=== PATIENT | female | born 1925 | race Asian ===

== ENCOUNTER 2016-09-13 16:05 | Inpatient (IN) | payer MEDICARE ==
[~2016-09-13] VITALS: Ht 152.4 cm; Wt 54.4 kg
[~2016-09-13 16:05] MED LIST: ASPI-1035 PO; FISH1CAP2 PO; LOSA1TAB34 PO; MULT-54 PO; SIMV40TA5 PO
[2016-09-13] MEDS ORDERED: IPRATROPIUM BROMIDE (0.02%) 0.5MG/2.5ML NEB HHN STA (19:38)
[2016-09-13] MEDS ORDERED: METHYLPREDNISOLONE SOD SUCC 125 MG/2 ML VIAL IV STA (19:38)
[2016-09-13] MEDS ORDERED: ALBUTEROL (0.083%) 2.5MG/3ML NEB HHN STA (19:38)
[2016-09-13] MEDS ORDERED: MAGNESIUM 2 G PREMIX 50 ML IV ONE (19:45)
[2016-09-13] MEDS ORDERED: LEVOFLOXACIN 500MG PREMIX 100 ML IV ONE (19:45)
[2016-09-13 20:08] LABS: MEAN CORPUSCULAR HEMOGLOBIN 38.1 pg (28.0-32.0); MEAN CORPUSCULAR VOLUME 111.7 fL (81.0-99.0); MEAN PLATELET VOLUME 8.1 fl (7.4-10.4); PLATELET 53 x1000/uL (130-400); RED BLOOD CELL COUNT 1.78 mill/uL (4.2-5.4); RED CELL DISTRIBUTION WIDTH 22.1 % (11.6-14.6)
[2016-09-13 20:11] LABS: HEMATOCRIT. 19.9 % (36.0-48.0); HEMOGLOBIN. 6.8 g/dL (12.0-16.0)
[2016-09-13 20:13] LABS: PROTHROMBIN TIME 10.7 sec
[2016-09-13 20:16] LABS: CARBON DIOXIDE 25 mEq/L (21-32); CHLORIDE 104 mEq/L (98-107)
[2016-09-13 20:21] LABS: CREATINE KINASE 102 IU/L (26-192); CREATINE KINASE MB FRACTION < 0.5 ng/mL (0.5-3.6); TOTAL IRON BINDING CAPACITY 216 ug/dL (250-450); TROPONIN I < 0.02 ng/mL (0.00-0.04)
[2016-09-13] MEDS ORDERED: ALBUTEROL (0.5%) 2.5MG/0.5ML NEB HHN ONE (20:25)
[2016-09-13] MEDS ORDERED: IPRATROPIUM/ALBUTEROL 0.5-3(2.5)MG/3ML NEB ONE (20:25)
[2016-09-13 20:34] LABS: ATYPICAL LYMPHOCYTES 2
[2016-09-13 20:35] LABS: PLATELET ESTIMATE DECREASED
[2016-09-13] MEDS ORDERED: FUROSEMIDE 20MG/2ML VIAL IVP ONE (21:00)
[2016-09-13] MEDS ORDERED: NITROGLYCERIN 0.4MG TABLET SL SL PRN (22:45)
[2016-09-13] MEDS ORDERED: NA PHOS,M-B/NA PHOS,DI-BA ENEMA 118ML PR PRN (22:45)
[2016-09-13] MEDS ORDERED: MAGNESIUM/ALUMINUM HYDROXIDE/SIMETHICONE 30ML UDC PO PRN (22:45)
[2016-09-13] MEDS ORDERED: DOCUSATE SODIUM 100MG CAPSULE PO PRN (22:45)
[2016-09-13] MEDS ORDERED: GUAIFENESIN 200MG/10ML SUGAR FREE UDC PO PRN (22:45)
[2016-09-13] MEDS ORDERED: MORPHINE SULFATE 2 MG/ML CPJ (NOT FOR IM USE) IV PRN (22:45)
[2016-09-13] MEDS ORDERED: ENOXAPARIN 40MG/0.4ML SYR SUBCUT SCH (22:45)
[2016-09-13] MEDS ORDERED: ACETAMINOPHEN 325MG TABLET PO PRN (22:45)
[2016-09-13] MEDS ORDERED: IPRATROPIUM/ALBUTEROL 0.5-3(2.5)MG/3ML NEB INH PRN (22:45)
[2016-09-13] MEDS ORDERED: ONDANSETRON HCL 4MG/2ML VIAL IV PRN (22:45)
[2016-09-13] MEDS ORDERED: CLONIDINE 0.1MG TABLET PO PRN (22:45)
[2016-09-13] MEDS ORDERED: TRAMADOL 50MG TABLET PO PRN (22:45)
[2016-09-13] MEDS ORDERED: DIPHENHYDRAMINE 50MG/ML VIAL IV PRN (22:45)
[2016-09-13] MEDS ORDERED: ACETAMINOPHEN 325MG TABLET PO ONE (23:30)
[2016-09-14] VITALS (10 sets, daily range): BP systolic 92–128; BP diastolic 49–81
[2016-09-14] MEDS: GUAIFENESIN/DM 600MG/30MG ER TAB 12HR PO SCH ×3 (01:01→21:16)
[2016-09-14] MEDS ORDERED: BREO-ELLIPTA INH (02:12)
[2016-09-14 07:56] LABS: CREATINE KINASE MB FRACTION < 0.5 ng/mL (0.5-3.6); TROPONIN I < 0.02 ng/mL (0.00-0.04)
[2016-09-14 07:57] LABS: CREATINE KINASE 95 IU/L (26-192)
[2016-09-14 08:30] LABS: HEMATOCRIT. 22.4 % (36.0-48.0); HEMOGLOBIN. 7.5 g/dL (12.0-16.0); MEAN CORPUSCULAR HEMOGLOBIN 35.5 pg (28.0-32.0); MEAN CORPUSCULAR VOLUME 106.9 fL (81.0-99.0); RED CELL DISTRIBUTION WIDTH 24.1 % (11.6-14.6)
[2016-09-14] MEDS ORDERED: LEVOFLOXACIN 750MG PREMIX 150 ML IV SCH ×2 (09:00→11:00)
[2016-09-14] MEDS: METOPROLOL TARTRATE 25MG TABLET PO SCH ×2 (09:00→21:00)
[2016-09-14 09:03] LABS: PLATELET 47 x1000/uL (130-400)
[2016-09-14] MEDS: ZINC SULFATE 220 MG ( 50 ) CAPSULE PO SCH (09:50)
[2016-09-14] MEDS: PANTOPRAZOLE SODIUM 40 MG/VIAL IV SCH (09:55)
[2016-09-14 10:50] LABS: PLATELET ESTIMATE MARKEDLY DECREASED
[2016-09-14 18:00] LABS: HEMATOCRIT 25.6 % (36.0-48.0); HEMOGLOBIN 8.7 g/dL (12.0-16.0); MEAN CORPUSCULAR HEMOGLOBIN 33.6 pg (28.0-32.0); MEAN CORPUSCULAR VOLUME 99.4 fL (81.0-99.0); RED BLOOD CELL COUNT 2.58 mill/uL (4.2-5.4); RED CELL DISTRIBUTION WIDTH 25.8 % (11.6-14.6)
[2016-09-14 18:12] LABS: PLATELET 45 x1000/uL (130-400)
[2016-09-14 18:21] LABS: CREATINE KINASE 149 IU/L (26-192); CREATINE KINASE MB FRACTION 1.8 ng/mL (0.5-3.6); TROPONIN I < 0.02 ng/mL (0.00-0.04)
[2016-09-14] MEDS ORDERED: GUAIFENESIN 600MG ER TABLET PO SCH (21:00)
[2016-09-14] MEDS: PIPERACILLIN/TAZ 3.375G PREMIX 50 ML IV SCH (23:05)
[2016-09-15] VITALS: BP 99/60
[2016-09-15] MEDS: IPRATROPIUM/ALBUTEROL 0.5-3(2.5)MG/3ML NEB HHN SCH ×5 (02:29→20:24)
[2016-09-15 04:00] VITALS: BP 92/56
[2016-09-15] MEDS: PIPERACILLIN/TAZ 3.375G PREMIX 50 ML IV SCH ×3 (06:18→22:27)
[2016-09-15 06:59] LABS: HEMATOCRIT. 25.3 % (36.0-48.0); HEMOGLOBIN. 8.5 g/dL (12.0-16.0); MEAN CORPUSCULAR HEMOGLOBIN 33.8 pg (28.0-32.0); MEAN CORPUSCULAR VOLUME 100.7 fL (81.0-99.0); MEAN PLATELET VOLUME 8.8 fl (7.4-10.4); RED BLOOD CELL COUNT 2.51 mill/uL (4.2-5.4); RED CELL DISTRIBUTION WIDTH 26.3 % (11.6-14.6)
[2016-09-15 08:00] VITALS: BP 97/50
[2016-09-15] MEDS: PANTOPRAZOLE SODIUM 40 MG/VIAL IV SCH (08:41)
[2016-09-15] MEDS: ZINC SULFATE 220 MG ( 50 ) CAPSULE PO SCH (08:41)
[2016-09-15] MEDS: GUAIFENESIN 600MG ER TABLET PO SCH ×2 (08:41→20:34)
[2016-09-15] MEDS: METOPROLOL TARTRATE 25MG TABLET PO SCH (08:42)
[2016-09-15 10:20] LABS: PLATELET ESTIMATE MARKEDLY DECREASED
[2016-09-15 10:21] LABS: PLATELET 42 x1000/uL (130-400)
[2016-09-15 12:00] VITALS: BP 96/47
[2016-09-15 16:00] VITALS: BP 92/48
[2016-09-15 20:00] VITALS: BP 102/62
[2016-09-15] MEDS: ZOLPIDEM TARTRATE 5MG TABLET PO PRN (22:27)
[2016-09-16] VITALS (10 sets, daily range): BP systolic 95–126; BP diastolic 55–77
[2016-09-16] MEDS: IPRATROPIUM/ALBUTEROL 0.5-3(2.5)MG/3ML NEB HHN SCH ×3 (02:33→21:51)
[2016-09-16 06:15] LABS: HEMATOCRIT. 24.4 % (36.0-48.0); HEMOGLOBIN. 8.3 g/dL (12.0-16.0); MEAN CORPUSCULAR HEMOGLOBIN 34.6 pg (28.0-32.0); MEAN CORPUSCULAR VOLUME 102.1 fL (81.0-99.0); RED BLOOD CELL COUNT 2.39 mill/uL (4.2-5.4); RED CELL DISTRIBUTION WIDTH 26.1 % (11.6-14.6)
[2016-09-16 06:26] LABS: PLATELET 38 x1000/uL (130-400)
[2016-09-16] MEDS: PIPERACILLIN/TAZ 3.375G PREMIX 50 ML IV SCH (07:21)
[2016-09-16] MEDS: PANTOPRAZOLE SODIUM 40 MG/VIAL IV SCH (09:01)
[2016-09-16] MEDS: ZINC SULFATE 220 MG ( 50 ) CAPSULE PO SCH (09:01)
[2016-09-16] MEDS: GUAIFENESIN 600MG ER TABLET PO SCH ×2 (09:01→20:57)
[2016-09-16 10:03] LABS: BG BASE EXCESS -2.6 mmol/L (-2.0-2.0); BG CARBOXYHEMOGLOBIN 0.3 % (0.5-1.5); BG DEOXYHEMOGLOBIN 7.8 % (0.0-5.0); BG FRACTION INSPIRED OXYGEN 21; BG HCO3 ACT 21.1 mmol/L (22.0-26.0); BG METHEMOGLOBIN 0.3 % (0.0-1.5); BG OXYGEN SATURATION 92.2 % (92.0-98.5); BG OXYHEMOGLOBIN 91.6 % (94.0-97.0); BG PCO2 32.4 mmHg (35.0-45.0); BG PH 7.431 (7.350-7.450); BG PO2 64.2 mmHg (75.0-100.0); BG SAMPLE SITE LEFT BRACHIAL; BG VENT MODE ROOM AIR
[2016-09-16] MEDS ORDERED: LEVOFLOXACIN 500MG TABLET PO SCH (11:00)
[2016-09-16 11:34] LABS: PLATELET ESTIMATE MARKEDLY DECREASED
[2016-09-16] MEDS: LEVOFLOXACIN 250MG TABLET PO SCH (12:09)
[2016-09-16] MEDS: ZOLPIDEM TARTRATE 5MG TABLET PO PRN (22:20)
[2016-09-17] VITALS: BP 94/50
[2016-09-17] MEDS: IPRATROPIUM/ALBUTEROL 0.5-3(2.5)MG/3ML NEB HHN SCH ×3 (01:55→12:06)
[2016-09-17 04:00] VITALS: BP 101/58
[2016-09-17 05:31] LABS: HEMATOCRIT. 27.2 % (36.0-48.0); HEMOGLOBIN. 9.2 g/dL (12.0-16.0); MEAN CORPUSCULAR HEMOGLOBIN 33.7 pg (28.0-32.0); MEAN CORPUSCULAR VOLUME 99.7 fL (81.0-99.0); RED BLOOD CELL COUNT 2.72 mill/uL (4.2-5.4); RED CELL DISTRIBUTION WIDTH 24.2 % (11.6-14.6)
[2016-09-17 06:24] LABS: CARBON DIOXIDE 24 mEq/L (21-32); CHLORIDE 112 mEq/L (98-107)
[2016-09-17 08:00] VITALS: BP 135/81
[2016-09-17 08:07] LABS: PLATELET 35 x1000/uL (130-400); PLATELET ESTIMATE MARKEDLY DECREASED
[2016-09-17] MEDS: LEVOFLOXACIN 250MG TABLET PO SCH (09:32)
[2016-09-17] MEDS: GUAIFENESIN 600MG ER TABLET PO SCH (09:32)
[2016-09-17] MEDS: ZINC SULFATE 220 MG ( 50 ) CAPSULE PO SCH (09:32)
[2016-09-17] MEDS: PANTOPRAZOLE SODIUM 40 MG/VIAL IV SCH (09:33)
[2016-09-17 12:00] VITALS: BP 120/63
== END 2016-09-17 14:40 | disposition home or self-care (01) | DRG 190 ==
LOC: ER 09-14 00:41 → 6WST 09-14 00:42
PROVIDERS: ADMIT Internal Medicine; ATTEND Internal Medicine
PROC: 30233N1 Transfusion of Nonautologous Red Blood Cells into Peripheral Vein, Percutaneous Approach (ICD-10-PCS; principal; 2016-09-13)
DX: J44.0 Chronic obstructive pulmonary disease with (acute) lower respiratory infection (principal); J18.9 Pneumonia, unspecified organism; C91.10 Chronic lymphocytic leukemia of B-cell type not having achieved remission; E44.1 Mild protein-calorie malnutrition; C85.90 Non-Hodgkin lymphoma, unspecified, unspecified site; J44.1 Chronic obstructive pulmonary disease with (acute) exacerbation; D69.59 Other secondary thrombocytopenia; I25.10 Atherosclerotic heart disease of native coronary artery without angina pectoris; D63.0 Anemia in neoplastic disease; E78.5 Hyperlipidemia, unspecified; M19.90 Unspecified osteoarthritis, unspecified site; E78.00 Pure hypercholesterolemia, unspecified; D50.9 Iron deficiency anemia, unspecified; D53.9 Nutritional anemia, unspecified; K59.00 Constipation, unspecified; E86.0 Dehydration; I11.9 Hypertensive heart disease without heart failure; I34.0 Nonrheumatic mitral (valve) insufficiency; K80.20 Calculus of gallbladder without cholecystitis without obstruction; R73.03 Prediabetes; Z96.643 Presence of artificial hip joint, bilateral; Z96.653 Presence of artificial knee joint, bilateral; Z88.1 Allergy status to other antibiotic agents; Z79.82 Long term (current) use of aspirin; Z88.8 Allergy status to other drugs, medicaments and biological substances; Z79.899 Other long term (current) drug therapy
CPT/HCPCS: 36415; 36600; 71010; 80048; 80053; 80061; 82270; 82375; 82550; 82553; 82784; 82805; 83010; 83036; 83540; 83550; 83605; 83615; 83690; 83880; 84484; 84550; 85025; 85027; 85044; 85610; 86850; 86880; 86900; 86920; 87040; 87186; 93005; 93970; 94640; 96365; 96367; 96375; 97112; 97116; 97162; 97166; 99291; C9113; J1956; J2543; J2930; J3475; J7040; J7050; J7611; J7620; P9016

== ENCOUNTER 2016-10-20 10:31 | Inpatient (IN) | payer MEDICARE ==
[~2016-10-20] VITALS: Ht 157.5 cm; Wt 54.0 kg
[~2016-10-20 10:31] MED LIST changes: -ASPI-1035 PO; +ASPI-1159 PO; +BREO-ELLIPTA INH
[2016-10-20 11:43] LABS: CHLORIDE 97 mEq/L (98-107); MEAN CORPUSCULAR HEMOGLOBIN 35.8 pg (28.0-32.0); MEAN CORPUSCULAR VOLUME 103.6 fL (81.0-99.0); MEAN PLATELET VOLUME 8.4 fl (7.4-10.4); PLATELET 78 x1000/uL (130-400); RED BLOOD CELL COUNT 1.61 mill/uL (4.2-5.4)
[2016-10-20 11:52] LABS: CARBON DIOXIDE 25 mEq/L (21-32)
[2016-10-20 11:54] LABS: PROTHROMBIN TIME 10.3 sec
[2016-10-20 11:55] LABS: HEMOGLOBIN. 5.8 g/dL (12.0-16.0)
[2016-10-20 11:56] LABS: HEMATOCRIT. 16.7 % (36.0-48.0)
[2016-10-20 12:18] LABS: PLATELET ESTIMATE DECREASED
[2016-10-20] MEDS ORDERED: LOSARTAN POTASSIUM 25 MG TABLET PO SCH (13:30)
[2016-10-20] MEDS ORDERED: CLONIDINE 0.1MG TABLET PO PRN (13:30)
[2016-10-20] MEDS ORDERED: ZOLPIDEM TARTRATE 5MG TABLET PO PRN (14:15)
[2016-10-20] MEDS ORDERED: MAGNESIUM/ALUMINUM HYDROXIDE/SIMETHICONE 30ML UDC PO PRN (15:00)
[2016-10-20] MEDS ORDERED: ONDANSETRON HCL 4MG/2ML VIAL IV PRN (15:00)
[2016-10-20 20:38] LABS: FOLIC ACID (FOLATE) SERUM 19.7 ng/mL (>5.38)
[2016-10-20] MEDS: ZOLPIDEM TARTRATE 5MG TABLET PO SCH (21:35)
[2016-10-21] MEDS: SODIUM CHLORIDE 0.9% 1,000 ML IV SCH ×2 (00:21→14:51)
[2016-10-21 03:00] LABS: CLARITY URINE CLEAR (CLEAR); COLOR URINE YELLOW (YELLOW); KETONES URINE NEGATIVE (NEGATIVE); LEUKOCYTE ESTERASE URINE NEGATIVE (NEGATIVE); NITRITE URINE NEGATIVE (NEGATIVE); OCCULT BLOOD URINE 2+ (NEGATIVE); PROTEIN URINE NEGATIVE (NEGATIVE); SPECIFIC GRAVITY URINE 1.012 (1.005-1.030)
[2016-10-21] MEDS: ASPIRIN 81MG EC TABLET PO SCH (04:37)
[2016-10-21 06:34] LABS: HEMATOCRIT. 22.1 % (36.0-48.0); HEMOGLOBIN. 7.6 g/dL (12.0-16.0); MEAN CORPUSCULAR VOLUME 95.2 fL (81.0-99.0); MEAN PLATELET VOLUME 8.5 fl (7.4-10.4); PLATELET 59 x1000/uL (130-400); RED BLOOD CELL COUNT 2.32 mill/uL (4.2-5.4); RED CELL DISTRIBUTION WIDTH 23.2 % (11.6-14.6)
[2016-10-21 07:36] LABS: CARBON DIOXIDE 27 mEq/L (21-32); CHLORIDE 105 mEq/L (98-107); HAPTOGLOBIN 333 mg/dL (30-200)
[2016-10-21] MEDS: ASCORBIC ACID 500 MG TABLET PO SCH (08:47)
[2016-10-21] MEDS: ALLOPURINOL 300 MG TABLET PO SCH (08:47)
[2016-10-21] MEDS ORDERED: LOSARTAN POTASSIUM 50 MG TABLET PO SCH (09:00)
[2016-10-21 13:48] LABS: NUCLEATED RED BLOOD CELLS 1 /100 WBC; PLATELET ESTIMATE MARKEDLY DECREASED
[2016-10-21] MEDS: DIPHENHYDRAMINE 50MG/ML VIAL IV PRN (14:13)
[2016-10-21] MEDS: ACETAMINOPHEN 325MG TABLET PO PRN (14:16)
[2016-10-21] MEDS: CLONIDINE 0.1MG TABLET PO PRN (14:21)
[2016-10-21] MEDS ORDERED: SODIUM CHLORIDE 0.9% 250 ML IV ONE (17:45)
[2016-10-21] MEDS ORDERED: SODIUM CHLORIDE 0.9% 500 ML IV ONE (19:30)
[2016-10-21] MEDS: ZOLPIDEM TARTRATE 5MG TABLET PO SCH (20:51)
[2016-10-21] MEDS ORDERED: ZOLPIDEM TARTRATE 5MG TABLET PO PRN (21:00)
[2016-10-22] MEDS: ACETAMINOPHEN 325MG TABLET PO PRN ×2 (03:45→19:56)
[2016-10-22] MEDS: ASPIRIN 81MG EC TABLET PO SCH (03:52)
[2016-10-22 06:15] LABS: CHLORIDE 108 mEq/L (98-107)
[2016-10-22 06:18] LABS: CARBON DIOXIDE 22 mEq/L (21-32)
[2016-10-22 07:15] LABS: HEMATOCRIT. 24.6 % (36.0-48.0); HEMOGLOBIN. 8.5 g/dL (12.0-16.0); MEAN CORPUSCULAR HEMOGLOBIN 32.5 pg (28.0-32.0); MEAN CORPUSCULAR VOLUME 94.5 fL (81.0-99.0); MEAN PLATELET VOLUME 8.6 fl (7.4-10.4); PLATELET 54 x1000/uL (130-400); RED BLOOD CELL COUNT 2.61 mill/uL (4.2-5.4)
[2016-10-22 08:35] LABS: PLATELET ESTIMATE DECREASED
[2016-10-22] MEDS: ALLOPURINOL 300 MG TABLET PO SCH (08:35)
[2016-10-22] MEDS: ASCORBIC ACID 500 MG TABLET PO SCH (08:35)
[2016-10-22] MEDS: SODIUM CHLORIDE 0.9% 1,000 ML IV SCH (15:33)
[2016-10-22] MEDS: ZOLPIDEM TARTRATE 5MG TABLET PO SCH (21:00)
[2016-10-23] MEDS: DIPHENHYDRAMINE 50MG/ML VIAL IV PRN (00:16)
[2016-10-23] MEDS: ACETAMINOPHEN 325MG TABLET PO PRN ×2 (00:26→18:06)
[2016-10-23] MEDS: CLONIDINE 0.1MG TABLET PO PRN (00:34)
[2016-10-23] MEDS: IPRATROPIUM/ALBUTEROL 0.5-3(2.5)MG/3ML NEB HHN PRN ×3 (01:18→09:36)
[2016-10-23 05:43] LABS: HEMATOCRIT. 27.6 % (36.0-48.0); HEMOGLOBIN. 9.4 g/dL (12.0-16.0); MEAN CORPUSCULAR HEMOGLOBIN 31.9 pg (28.0-32.0); MEAN CORPUSCULAR VOLUME 93.7 fL (81.0-99.0); MEAN PLATELET VOLUME 8.7 fl (7.4-10.4); PLATELET 54 x1000/uL (130-400); RED BLOOD CELL COUNT 2.95 mill/uL (4.2-5.4); RED CELL DISTRIBUTION WIDTH 15.1 % (11.6-14.6)
[2016-10-23] MEDS: ASPIRIN 81MG EC TABLET PO SCH (06:00)
[2016-10-23] MEDS ORDERED: SODIUM CHLORIDE 0.9% 250 ML IV ONE ×2 (06:30)
[2016-10-23] MEDS ORDERED: SODIUM CHLORIDE 0.9% 500 ML IV ONE ×2 (06:30)
[2016-10-23] MEDS ORDERED: SODIUM CHLORIDE 0.9% 350 ML IV NR (07:15)
[2016-10-23] MEDS: ALLOPURINOL 300 MG TABLET PO SCH (08:53)
[2016-10-23] MEDS: ASCORBIC ACID 500 MG TABLET PO SCH (08:53)
[2016-10-23 13:19] LABS: PLATELET ESTIMATE MARKEDLY DECREASED
[2016-10-23] MEDS ORDERED: FUROSEMIDE 20MG/2ML VIAL IVP SCH (14:00)
[2016-10-23 14:31] LABS: CLARITY URINE CLOUDY (CLEAR); COLOR URINE YELLOW (YELLOW); KETONES URINE NEGATIVE (NEGATIVE); LEUKOCYTE ESTERASE URINE TRACE (NEGATIVE); NITRITE URINE NEGATIVE (NEGATIVE); OCCULT BLOOD URINE 2+ (NEGATIVE); PH URINE 5.5 (4.5-8.0); PROTEIN URINE TRACE (NEGATIVE); SPECIFIC GRAVITY URINE 1.017 (1.005-1.030); UROBILINOGEN URINE 0.2 E.U./dL (0.2-1.0)
[2016-10-23] MEDS ORDERED: METOLAZONE 2.5MG TABLET PO NR (15:45)
[2016-10-23] MEDS: IPRATROPIUM/ALBUTEROL 0.5-3(2.5)MG/3ML NEB HHN SCH ×2 (16:36→20:40)
[2016-10-23] MEDS: ZOLPIDEM TARTRATE 5MG TABLET PO SCH (21:22)
[2016-10-24] MEDS: IPRATROPIUM/ALBUTEROL 0.5-3(2.5)MG/3ML NEB HHN SCH ×4 (00:40→11:18)
[2016-10-24] MEDS: ASPIRIN 81MG EC TABLET PO SCH (06:00)
[2016-10-24 08:14] LABS: HEMATOCRIT. 30.3 % (36.0-48.0); HEMOGLOBIN. 10.4 g/dL (12.0-16.0); MEAN CORPUSCULAR HEMOGLOBIN 32.2 pg (28.0-32.0); MEAN CORPUSCULAR VOLUME 93.6 fL (81.0-99.0); MEAN PLATELET VOLUME 8.7 fl (7.4-10.4); PLATELET 52 x1000/uL (130-400); RED BLOOD CELL COUNT 3.23 mill/uL (4.2-5.4); RED CELL DISTRIBUTION WIDTH 15.9 % (11.6-14.6)
[2016-10-24] MEDS: ASCORBIC ACID 500 MG TABLET PO SCH (08:26)
[2016-10-24] MEDS: ALLOPURINOL 300 MG TABLET PO SCH (08:26)
[2016-10-24 13:46] LABS: PLATELET ESTIMATE DECREASED
[2016-10-24] MEDS ORDERED: LEVOFLOXACIN 500MG PREMIX 100 ML IV SCH (14:00)
[2016-10-24 14:24] VITALS: BP 113/62
[2016-10-24] MEDS ORDERED: LEVOFLOXACIN 500MG TABLET PO SCH (14:30)
== END 2016-10-24 15:00 | disposition home health service (06) | DRG 812 ==
LOC: ER 10:44 → 7WST 11:37 → EDBEDREQ 11:40 → ENRESERV 12:12
PROVIDERS: ADMIT Internal Medicine; ATTEND Internal Medicine
PROC: 30233N1 Transfusion of Nonautologous Red Blood Cells into Peripheral Vein, Percutaneous Approach (ICD-10-PCS; principal; 2016-10-20)
DX: D53.9 Nutritional anemia, unspecified (principal); C91.10 Chronic lymphocytic leukemia of B-cell type not having achieved remission; C85.90 Non-Hodgkin lymphoma, unspecified, unspecified site; N39.0 Urinary tract infection, site not specified; E44.0 Moderate protein-calorie malnutrition; I25.10 Atherosclerotic heart disease of native coronary artery without angina pectoris; Z96.643 Presence of artificial hip joint, bilateral; I11.9 Hypertensive heart disease without heart failure; T80.89XA Other complications following infusion, transfusion and therapeutic injection, initial encounter; J44.9 Chronic obstructive pulmonary disease, unspecified; E78.5 Hyperlipidemia, unspecified; E78.00 Pure hypercholesterolemia, unspecified; D69.59 Other secondary thrombocytopenia; Y84.8 Other medical procedures as the cause of abnormal reaction of the patient, or of later complication, without mention of misadventure at the time of the procedure; M19.90 Unspecified osteoarthritis, unspecified site; Z87.01 Personal history of pneumonia (recurrent); Z80.0 Family history of malignant neoplasm of digestive organs; Z88.8 Allergy status to other drugs, medicaments and biological substances; Z79.82 Long term (current) use of aspirin; Z79.899 Other long term (current) drug therapy; Y92.89 Other specified places as the place of occurrence of the external cause
CPT/HCPCS: 36415; 71010; 80048; 80053; 81001; 82270; 82607; 82746; 82962; 83010; 83615; 84484; 85025; 85610; 86078; 86850; 86880; 86900; 86920; 87077; 87086; 87186; 93005; 94640; 97161; 99291; A6261; J1200; J1940; J1956; J7030; J7040; J7050; J7620; P9016

== ENCOUNTER 2016-10-28 14:08 | Emergency (ER) | payer MEDICARE ==
[~2016-10-28] VITALS: Ht 154.9 cm; Wt 48.0 kg
[2016-10-28 15:33] LABS: BASOPHILS % 0.1 % (0.0-2.0); EOSINOPHILS % 0.3 % (0.0-5.0); HEMATOCRIT. 31.8 % (36.0-48.0); HEMOGLOBIN. 10.9 g/dL (12.0-16.0); LYMPHOCYTES % 67.7 % (20.0-50.0); MEAN CORPUSCULAR HEMOGLOBIN 32.3 pg (28.0-32.0); MEAN CORPUSCULAR VOLUME 94.7 fL (81.0-99.0); MEAN PLATELET VOLUME 8.3 fl (7.4-10.4); MONOCYTES % 1.8 % (2.0-8.0); NEUTROPHILS % 30.1 % (40.0-76.0); PLATELET 68 x1000/uL (130-400); RED BLOOD CELL COUNT 3.36 mill/uL (4.2-5.4); RED CELL DISTRIBUTION WIDTH 17.4 % (11.6-14.6)
[2016-10-28 15:37] LABS: CHLORIDE 97 mEq/L (98-107)
[2016-10-28 15:39] LABS: INR 1.1; PROTHROMBIN TIME 11.2 sec
[2016-10-28 15:44] LABS: CLARITY URINE CLOUDY (CLEAR); COLOR URINE DARK YELLOW (YELLOW); GLUCOSE URINE NEGATIVE (NEGATIVE); KETONES URINE NEGATIVE (NEGATIVE); LEUKOCYTE ESTERASE URINE 1+ (NEGATIVE); NITRITE URINE NEGATIVE (NEGATIVE); OCCULT BLOOD URINE 2+ (NEGATIVE); PH URINE 5.5 (4.5-8.0); PROTEIN URINE 1+ (NEGATIVE); SPECIFIC GRAVITY URINE 1.023 (1.005-1.030)
[2016-10-28 15:48] LABS: CARBON DIOXIDE 27 mEq/L (21-32)
[2016-10-28 16:50] VITALS: BP 130/66
== END 2016-10-28 16:53 | disposition home or self-care (01) ==
LOC: ER 14:42 → CANBEDREQ 21:57
DX: R21 Rash and other nonspecific skin eruption (principal); C91.10 Chronic lymphocytic leukemia of B-cell type not having achieved remission; D69.6 Thrombocytopenia, unspecified; I10 Essential (primary) hypertension; J44.9 Chronic obstructive pulmonary disease, unspecified; E78.00 Pure hypercholesterolemia, unspecified; E78.5 Hyperlipidemia, unspecified; M19.90 Unspecified osteoarthritis, unspecified site; D64.9 Anemia, unspecified; Z79.82 Long term (current) use of aspirin; Z88.1 Allergy status to other antibiotic agents
CPT/HCPCS: 36415; 80053; 81001; 85025; 85610; 86850; 86900; 99284